=== PATIENT | male | born 1985 | race African-American/Black ===

== ENCOUNTER 2021-10-04 13:28 | Inpatient (IN) | payer OTHER ==
[2021-10-04 13:39] VITALS: BMI 33.5
[2021-10-04 14:26] LABS: BASO % 0.7 % (0-2.0); EOS % 1.2 % (0-4.5); HEMOGLOBIN 15.8 GM/dL (11.7-16.9); LYMPH % 38.3 % (8-40); MCH 27.8 pg (25.7-33.7); MCHC 32.8 g/dl (32.0-35.9); MEAN CELL VOLUME 84.8 fl (80-96); MEAN PLT VOLUME 9.2 fl (7.5-11.1); MONO % 9.1 % (3.8-10.2); NEUT % 50.7 % (42.8-82.8); PLATELET COUNT 219 10^3/uL (134-434); RBC 5.66 M/mm3 (4.00-5.60); RDW 14.2 % (11.9-15.9); WHITE BLOOD COUNT 5.5 K/mm3 (4.0-10.0)
[2021-10-04 14:33] LABS: INR 1.04 (0.83-1.09)
[2021-10-04 14:36] LABS: ACTIVATED PTT 30.2 SECONDS (25.2-36.5)
[2021-10-04 15:22] LABS: ANION GAP 6 MMOL/L (8-16); CALCIUM 8.7 mg/dL (8.5-10.1); CHLORIDE 111 mmol/L (98-107); CO2 27 mmol/L (21-32); SODIUM 144 mmol/L (136-145)
[2021-10-04 15:25] LABS: BLOOD UREA NITROGEN 12.5 mg/dL (7-18); GLUCOSE,RANDOM 115 mg/dL (74-106)
[2021-10-04 15:26] LABS: ALBUMIN 3.1 g/dl (3.4-5.0)
[2021-10-04 15:27] LABS: CREATININE 1.3 mg/dL (0.55-1.3); SGOT/AST 49 U/L (15-37); SGPT/ALT 55 U/L (13-61)
[2021-10-04 15:30] LABS: BILIRUBIN,TOTAL 0.8 mg/dL (0.2-1)
[2021-10-04 15:31] LABS: ALK PHOS 67 U/L (45-117); N-TERMINAL BNP 2328.5 pg/ml (5-125)
[2021-10-04] MEDS ORDERED: FUROSEMIDE 40 MG/4 ML INJECTABLE VIAL IVPUSH ONE (16:00)
[2021-10-04] MEDS ORDERED: ASPIRIN 81 MG CHEWABLE TABLETS PO ONE (16:01)
[2021-10-04] MEDS ORDERED: FUROSEMIDE 40 MG/4 ML INJECTABLE VIAL ONE (16:16)
[2021-10-04] MEDS ORDERED: ASPIRIN 81 MG CHEWABLE TABLETS ONE (16:16)
[2021-10-04 18:55] LABS: PH,URINE 5.5 (5.0-8.0); URINE APPEARANCE CLEAR; URINE BILIRUBIN NEGATIVE (NEGATIVE); URINE COLOR YELLOW; URINE GLUCOSE (UA) NEGATIVE (NEGATIVE); URINE KETONE NEGATIVE (NEGATIVE); URINE LEUK ESTERASE NEGATIVE (NEGATIVE); URINE NITRITE NEGATIVE (NEGATIVE); URINE PROTEIN NEGATIVE (NEGATIVE); URINE UROBILINOGEN 0.2 mg/dL (0.2-1.0)
[2021-10-04] MEDS ORDERED: CARVEDILOL 3.125 MG TABLET (FP) PO SCH (22:00)
[2021-10-04] MEDS ORDERED: CARVEDILOL 3.125 MG TABLET (FP) ONE (22:40)
[2021-10-05 07:22] LABS: HEMATOCRIT 47.3 % (35.4-49); HEMOGLOBIN 15.5 GM/dL (11.7-16.9); MCH 28.1 pg (25.7-33.7); MCHC 32.8 g/dl (32.0-35.9); MEAN CELL VOLUME 85.6 fl (80-96); MEAN PLT VOLUME 9.5 fl (7.5-11.1); PLATELET COUNT 198 10^3/uL (134-434); RBC 5.53 M/mm3 (4.00-5.60); RDW 14.1 % (11.9-15.9); WHITE BLOOD COUNT 5.7 K/mm3 (4.0-10.0)
[2021-10-05 07:41] LABS: MAGNESIUM 2.1 mg/dL (1.8-2.4)
[2021-10-05 07:54] LABS: ALBUMIN 2.8 g/dl (3.4-5.0); BLOOD UREA NITROGEN 14.3 mg/dL (7-18); CALCIUM 8.6 mg/dL (8.5-10.1)
[2021-10-05 07:57] LABS: CREATININE 1.1 mg/dL (0.55-1.3)
[2021-10-05 07:58] LABS: BILIRUBIN,TOTAL 1.6 mg/dL (0.2-1); TOT PROT 5.5 g/dl (6.4-8.2)
[2021-10-05] MEDS ORDERED: FUROSEMIDE 40 MG/4 ML INJECTABLE VIAL IVPUSH SCH (10:00)
[2021-10-05] MEDS ORDERED: CARVEDILOL 3.125 MG TABLET (FP) PO ONE (11:02)
[2021-10-05] MEDS ORDERED: CARVEDILOL 3.125 MG TABLET (FP) ONE (11:13)
[2021-10-05] MEDS: ENOXAPARIN NA (PORCINE) 40 MG/0.4 ML DISP.SYRIN SQ SCH (11:18)
[2021-10-05 12:15] LABS: URINE UREA NITROGEN 95 MG/DL (350-1000)
[2021-10-05 12:20] LABS: CREATININE, URINE RANDOM < 13.0 mg/dL (30-150)
[2021-10-05] MEDS: SACUBITRIL/VALSARTAN 24 MG-26 MG TABLET PO SCH ×2 (16:34→21:55)
[2021-10-05 16:39] LABS: METHADONE, UR NEGATIVE (NEGATIVE); OPIATES, URI NEGATIVE (NEGATIVE); PHENCYCLIDINE,URINE NEGATIVE (NEGATIVE); URINE BARBITURATES NEGATIVE (NEGATIVE)
[2021-10-05 16:57] LABS: COCAINE, UR NEGATIVE (NEGATIVE); URINE AMPHETAMINES NEGATIVE (NEGATIVE); URINE BENZODIAZEPINES NEGATIVE (NEGATIVE)
[2021-10-05] MEDS: CARVEDILOL 6.25 MG TABLET (FP) PO SCH (21:55)
[2021-10-06] MEDS: ENOXAPARIN NA (PORCINE) 40 MG/0.4 ML DISP.SYRIN SQ SCH (09:22)
[2021-10-06] MEDS: CARVEDILOL 6.25 MG TABLET (FP) PO SCH ×2 (09:23→21:43)
[2021-10-06] MEDS: SACUBITRIL/VALSARTAN 24 MG-26 MG TABLET PO SCH ×2 (09:23→21:43)
[2021-10-06] MEDS: FUROSEMIDE 40 MG/4 ML INJECTABLE VIAL IVPUSH SCH (09:23)
[2021-10-06 13:52] LABS: BASO % 1.1 % (0-2.0); EOS % 1.6 % (0-4.5); HEMATOCRIT 51.9 % (35.4-49); HEMOGLOBIN 16.8 GM/dL (11.7-16.9); LYMPH % 35.9 % (8-40); MCH 27.8 pg (25.7-33.7); MCHC 32.4 g/dl (32.0-35.9); MEAN PLT VOLUME 10.3 fl (7.5-11.1); MONO % 7.5 % (3.8-10.2); NEUT % 53.9 % (42.8-82.8); PLATELET COUNT 179 10^3/uL (134-434); RBC 6.03 M/mm3 (4.00-5.60); RDW 14.2 % (11.9-15.9); WHITE BLOOD COUNT 5.3 K/mm3 (4.0-10.0)
[2021-10-06 14:20] LABS: CALCIUM 8.6 mg/dL (8.5-10.1)
[2021-10-06 14:21] LABS: ALBUMIN 2.7 g/dl (3.4-5.0); BLOOD UREA NITROGEN 14.9 mg/dL (7-18); MAGNESIUM 2.3 mg/dL (1.8-2.4)
[2021-10-06 14:24] LABS: CREATININE 1.1 mg/dL (0.55-1.3); PHOSPHOROUS 4.3 mg/dL (2.5-4.9)
[2021-10-06 14:25] LABS: BILIRUBIN,TOTAL 1.7 mg/dL (0.2-1)
[2021-10-06 14:26] LABS: TOT PROT 5.4 g/dl (6.4-8.2)
[2021-10-07] MEDS: ENOXAPARIN NA (PORCINE) 40 MG/0.4 ML DISP.SYRIN SQ SCH (09:33)
[2021-10-07] MEDS: SACUBITRIL/VALSARTAN 24 MG-26 MG TABLET PO SCH ×2 (09:33→21:30)
[2021-10-07] MEDS: CARVEDILOL 6.25 MG TABLET (FP) PO SCH ×2 (09:33→21:30)
[2021-10-07] MEDS: FUROSEMIDE 40 MG/4 ML INJECTABLE VIAL IVPUSH SCH ×2 (09:33→14:51)
[2021-10-07 10:27] LABS: HEMATOCRIT 48.8 % (35.4-49); MCH 27.9 pg (25.7-33.7); MCHC 32.7 g/dl (32.0-35.9); MEAN CELL VOLUME 85.4 fl (80-96); MEAN PLT VOLUME 9.9 fl (7.5-11.1); PLATELET COUNT 182 10^3/uL (134-434); RBC 5.72 M/mm3 (4.00-5.60); RDW 14.2 % (11.9-15.9); WHITE BLOOD COUNT 4.6 K/mm3 (4.0-10.0)
[2021-10-07 11:04] LABS: BLOOD UREA NITROGEN 16.2 mg/dL (7-18); CALCIUM 8.3 mg/dL (8.5-10.1)
[2021-10-07 11:05] LABS: MAGNESIUM 2.1 mg/dL (1.8-2.4)
[2021-10-07 11:07] LABS: ALBUMIN 2.5 g/dl (3.4-5.0); CREATININE 1.1 mg/dL (0.55-1.3)
[2021-10-07 11:09] LABS: BILIRUBIN,TOTAL 1.5 mg/dL (0.2-1)
[2021-10-07 22:24] VITALS: TEMP 98.8
[2021-10-08] MEDS: FUROSEMIDE 40 MG/4 ML INJECTABLE VIAL IVPUSH SCH (07:08)
[2021-10-08 07:17] VITALS: BP 130/80; PULSE 97
[2021-10-08 09:00] LABS: HEMATOCRIT 49.7 % (35.4-49); HEMOGLOBIN 16.1 GM/dL (11.7-16.9); MCH 27.6 pg (25.7-33.7); MCHC 32.4 g/dl (32.0-35.9); MEAN CELL VOLUME 85.3 fl (80-96); MEAN PLT VOLUME 10.5 fl (7.5-11.1); PLATELET COUNT 159 10^3/uL (134-434); RBC 5.83 M/mm3 (4.00-5.60); RDW 13.8 % (11.9-15.9); WHITE BLOOD COUNT 4.4 K/mm3 (4.0-10.0)
[2021-10-08 09:13] LABS: ALBUMIN 2.6 g/dl (3.4-5.0); CALCIUM 8.3 mg/dL (8.5-10.1); MAGNESIUM 2.2 mg/dL (1.8-2.4)
[2021-10-08 09:18] LABS: BILIRUBIN,TOTAL 1.8 mg/dL (0.2-1); TOT PROT 5.3 g/dl (6.4-8.2)
== END 2021-10-08 08:05 | disposition short-term general hospital (02) | DRG 194 ==
LOC: JER 13:28 → JERBED 15:48 → J4W 10-05 18:36
PROVIDERS: ADMIT Internal Medicine; ATTEND Internal Medicine
DX: I11.0 Hypertensive heart disease with heart failure (principal); I50.23 Acute on chronic systolic (congestive) heart failure; N17.9 Acute kidney failure, unspecified; Z86.16 Personal history of COVID-19; I42.8 Other cardiomyopathies; E03.8 Other specified hypothyroidism
CPT/HCPCS: 36415; 71046-TC-FY; 71275-TC; 76604; 80053; 80061; 80307; 81003; 82550; 82570; 83036; 83735; 83880; 84100; 84439; 84443; 84484; 85025; 85027; 85379; 85610; 85730; 93005; 93010; 93306-TC; 93308; 93970-TC; 99285-25; C9803-CS; Q9967; U0003; U0005